=== PATIENT | female | born 1990 | race African-American/Black ===

== ENCOUNTER 2022-01-10 13:34 | Emergency (ER) | payer SELFPAY ==
[2022-01-10] MEDS ORDERED: Oxymetazoline HCl 0.05% (30 ML BOT) ONE (15:19)
[2022-01-10 23:09] LABS: SARS-CoV-2 PCR by NAA Not Detected (NotDetected)
== END 2022-01-10 15:42 | disposition home or self-care (01) ==
LOC: ERS 13:34
DX: B34.9 Viral infection, unspecified (principal); Z20.822 Contact with and (suspected) exposure to COVID-19
CPT/HCPCS: 71045; U0003; U0005

== ENCOUNTER 2024-09-23 15:53 | Emergency (ER) | payer MEDICAID, OTHER | END 2024-09-23 18:24 | disposition home or self-care (01) | LOC: ERS 15:53 | DX: B34.9 Viral infection, unspecified (principal) | CPT/HCPCS: 71045; 87081; 87430 ==